=== PATIENT | male | born 1940 | race African-American/Black ===

== ENCOUNTER → 2016-08-20 | Outpatient (CLI) | payer MEDICARE, OTHER ==
[~2016-08-20] MED LIST: ASPIRIN EC81 M1 PO; ATORVASTATIN CA10 MG PO; GLIPIZIDE5 MG/BOTT1 PO; IRBESARTAN300 MG PO; METFORMIN HCL1000 M1 PO
--- NOTE | ~2016-08-20 | EKG ---
PATIENT: REAL HOLLEY UNIT #: [id number] Ventricular Rate: 72 BPM Atrial Rate: 72 BPM P-R Interval: 152 ms QRS Duration: 74 ms Q-T Interval: 368 ms QTC Calculation(Bezet): 402 ms P [place]: 26 degrees Calculated R [place]: -12 degrees Calculated T [place]: 13 degrees Diagnosis Line: Sinus rhythm with Premature atrial complexes Diagnosis Line: Otherwise normal ECG Diagnosis Line: No previous ECGs available Diagnosis Line: Confirmed by OLEKSANDR MATUTE MD ([id number]) on 08/20/2016 Diagnosis Line: 4:47:54 PM INTERPRETING MD: GIOVANI JO
[2016-08-20 13:55] LABS: BLOOD UREA NITROGEN 10 mg/dL (9-23); BUN/CREATININE RATIO 9.09; CALCIUM SERUM 9.6 mg/dL (8.4-10.2); CARBON DIOXIDE 29 mmol/L (22-31); CHLORIDE 106 mmol/L (100-111); CREATININE SERUM 1.1 mg/dL (0.6-1.4); GLOM FILT RATE Estimated ABOVE60 mL/min (>60); GLUCOSE FASTING 90 mg/dL (70-110); POTASSIUM 4.5 mmol/L (3.5-5.1); SODIUM 143 mmol/L (135-145)
== END | disposition home or self-care (01) ==
LOC: CAMB 11:02
PROVIDERS: Surgery
DX: Z01.818 Encounter for other preprocedural examination (principal); K43.9 Ventral hernia without obstruction or gangrene
CPT/HCPCS: 36415; 80048; 93005

== ENCOUNTER → 2016-08-27 | Day surgery (SDC) | payer MEDICARE, OTHER ==
--- NOTE | ~2016-08-27 | OR ---
Unit #: [id number] #: [id number] Patient: REAL HOLLEY [id number] [facility]. [place], [place] [address] [id number] O MR#: [id number] NAME: REAL HOLLEY ROOM: Date of Procedure: 08/27/2016 Admission Date: 08/27/2016 Surgeon: Sukhi Dixon M.D. : 1940 Attending Physician: Sukhi Dixon M.D. Primary Care Physician: Brando Loredo Jr., A.P.R.N. OPERATIVE REPORT PREOPERATIVE DIAGNOSIS Incarcerated ventral hernia. POSTOPERATIVE DIAGNOSIS 2 cm incarcerated ventral hernia. PROCEDURE PERFORMED Laparoscopic ventral hernia repair with 8 x 6 Ventralight mesh. ASSISTANT J Luis Meraz M.D. ANESTHESIA General endotracheal anesthesia. ESTIMATED BLOOD LOSS Minimal. IV FLUIDS 800 crystalloid. COMPLICATIONS None. INDICATIONS FOR PROCEDURE The patient is a 76-year-old, who presents with incarcerated ventral hernia. DESCRIPTION OF PROCEDURE The patient was taken to the operating theater and placed in supine position. General anesthesia was induced. The abdomen was prepped and draped. A 5-mm Optiview trocar was placed in the left upper quadrant without difficulty. The abdomen was insufflated to 15 mm with CO2. Under direct vision, I placed the left lower quadrant 10 mm. General inspection of the abdomen revealed incarcerated hernia measuring approximately 2 cm. This was reduced with gentle traction. I took down the falciform ligament with Bovie electrocautery. I placed an 8 x 6 Ventralight mesh over the defect as well as in the epigastric region, where it has a known diastasis. This was secured with the tacking device in two circumferential rows with each tack being 1.5 cm from the previous tack. Hemostasis was adequate. I removed the ports under direct vision and closed the wounds with 4-0 Vicryl. The persisting sutures were cut at Unit #: [id number] #: [id number] Patient: REAL HOLLEY skin level. The patient tolerated the procedure well and sent to the recovery room in good condition. Dictated by... Ricarda Paredes/raphael TD: 08/27/2016 16:45 JOB #: [id number] OPERATIVE REPORT X Sukhi Dixon MD PROCEDURE OPERATIVE NOTE
== END | disposition home or self-care (01) ==
LOC: CSUR 05:36
DX: K43.6 Other and unspecified ventral hernia with obstruction, without gangrene (principal); E11.9 Type 2 diabetes mellitus without complications; Z79.84 Long term (current) use of oral hypoglycemic drugs; I10 Essential (primary) hypertension; G47.33 Obstructive sleep apnea (adult) (pediatric); Z83.3 Family history of diabetes mellitus; Z82.49 Family history of ischemic heart disease and other diseases of the circulatory system
CPT/HCPCS: 82947; C1787; J0131; J0690; J1644; J2250; J3010